=== PATIENT | male | born 1950 | race Caucasian/White ===

== ENCOUNTER 2024-06-13 11:56 | Emergency (ER) | payer MEDICARE, OTHER ==
[~2024-06-13] VITALS: Ht 175.3 cm; Wt 94.0 kg
[2024-06-13 12:04] VITALS: BP 196/100
[2024-06-13 12:15] VITALS: BP 177/96
[2024-06-13 12:16] VITALS: BP 177/95
[2024-06-13 12:30] VITALS: BP 174/96
[2024-06-13 12:45] VITALS: BP 170/84
[2024-06-13 13:00] VITALS: BP 170/84
== END 2024-06-13 13:00 | disposition home or self-care (01) ==
LOC: ED 11:56
DX: S46.911A Strain of unspecified muscle, fascia and tendon at shoulder and upper arm level, right arm, initial encounter (principal); W19.XXXA Unspecified fall, initial encounter; Y92.410 Unspecified street and highway as the place of occurrence of the external cause